=== PATIENT | male | born 1965 | race Caucasian/White ===

== ENCOUNTER 2018-05-02 08:32 | Day surgery (SDC) | payer BC ==
[~2018-05-02 08:32] MED LIST: ALLOPURINOL100 MG PO; ATENOLOL25 MG PO; B VITAMINS; BENICAR20 MG PO; CIPRO500 MG PO; FLAGYL500 MG PO; NORVASC10 MG PO; PERCOCET 10-321 EACH; PERCOCET 5/31 TABLET PO; PRILOSEC OTC; PRINIVIL10 MG PO; ZYLOPRIM300 MG PO; [UNRECOGNIZED DRUG - OTHER]
[2018-05-02] MEDS ORDERED: VITAMIN B-122000 MC1 PO (09:31)
== END 2018-05-02 18:20 | disposition home or self-care (01) ==
LOC: CATH 08:32
PROC: 4A023N7 Measurement of Cardiac Sampling and Pressure, Left Heart, Percutaneous Approach (ICD-10-PCS; principal; 2018-05-02)
PROC: B2151ZZ Fluoroscopy of Left Heart using Low Osmolar Contrast (ICD-10-PCS; principal; 2018-05-02)
PROC: B2111ZZ Fluoroscopy of Multiple Coronary Arteries using Low Osmolar Contrast (ICD-10-PCS; principal; 2018-05-02)
DX: I25.10 Atherosclerotic heart disease of native coronary artery without angina pectoris (principal); I71.2 Thoracic aortic aneurysm, without rupture; I34.0 Nonrheumatic mitral (valve) insufficiency; I10 Essential (primary) hypertension; I73.9 Peripheral vascular disease, unspecified; F17.210 Nicotine dependence, cigarettes, uncomplicated
CPT/HCPCS: 85347; 93005; C1769; C1887; C1894; J1644; J2250; J3010; J7040